=== PATIENT | female | born 1945 | race Caucasian/White ===

== ENCOUNTER → 2016-06-28 | Outpatient (CLI) | payer MEDICARE, OTHER ==
[~2016-06-28] MED LIST: ALLOPURINOL PO; ASPIR 8181 MG PO; COREG 12.5MG12.5 MG PO; CYMBALTA60 MG PO; DEXILANT60 MG PO; ELIQUIS2.5 MG PO; FISH OIL 1,0001 EAC1 PO; FOSAMAX70 MG PO; GARLIC1000 MG PO; HYDROCODON-ACE1 EAC4 PO; IMPRAMINE PO; ISOSORBIDE DINI30 MG PO; KLONOPIN TAB 00.5 MG PO; LASIX40 MG PO; LIPITOR TAB 2020 MG PO; LISINOPRIL10 MG PO; LORTAB 5-325 M1 EACH PO; NEURONTIN 300300 MG PO; NITROSTAT 0.40.4 MG SL; NORCO 5-325 TA1 EACH PO; PLAVIX 75 MG TA75 MG PO; SPIRONOLACTONE25 MG PO; TRICOR48 MG PO; TYLENOL ARTHRITIS PO; VOLTAREN 0.1%2.5 ML TOP; ZANAFLEX4 MG PO
== END ==
LOC: CT 08:00
DX: M51.17 Intervertebral disc disorders with radiculopathy, lumbosacral region (principal); M43.16 Spondylolisthesis, lumbar region
CPT/HCPCS: 72131

== ENCOUNTER 2016-07-23 21:03 | Emergency (ER) | payer MEDICARE, OTHER | END 2016-07-24 01:00 | disposition home or self-care (01) | LOC: ER1 21:03 | DX: S09.90XA Unspecified injury of head, initial encounter (principal); S51.812A Laceration without foreign body of left forearm, initial encounter; S80.212A Abrasion, left knee, initial encounter; I10 Essential (primary) hypertension; I48.91 Unspecified atrial fibrillation; Z79.02 Long term (current) use of antithrombotics/antiplatelets; Z88.0 Allergy status to penicillin; Z88.5 Allergy status to narcotic agent; Z23 Encounter for immunization; W01.198A Fall on same level from slipping, tripping and stumbling with subsequent striking against other object, initial encounter; Y93.01 Activity, walking, marching and hiking; Y92.480 Sidewalk as the place of occurrence of the external cause | CPT/HCPCS: 70450; 72125; 72170; 73080; 73090; 73564; 73610; 90471; 90715; 99284 ==

== ENCOUNTER → 2020-05-13 | Outpatient (CLI) | payer MEDICARE, OTHER ==
[~2020-05-13] MED LIST changes: +KEFLEX CAP 500500 MG PO
== END ==
LOC: KOH-I 11:44
DX: M25.511 Pain in right shoulder (principal)
CPT/HCPCS: 73030

== ENCOUNTER → 2020-06-10 | Outpatient (CLI) | payer MEDICARE, OTHER | LOC: KOH-I 11:22 | DX: M25.552 Pain in left hip (principal); M16.12 Unilateral primary osteoarthritis, left hip | CPT/HCPCS: 73502 ==

== ENCOUNTER → 2021-07-10 | Outpatient (CLI) | payer MEDICARE ==
[2021-07-13 10:17] LABS: CREATININE, URINE 118.2 mg/dL (Not Estab.)
== END ==
LOC: LAB 13:47
PROVIDERS: Internal Medicine Nephrology
DX: N18.32 Chronic kidney disease, stage 3b (principal)
CPT/HCPCS: 36415; 80048; 82043; 82570

== ENCOUNTER → 2021-09-23 | Outpatient (CLI) | payer MEDICARE, OTHER | LOC: KOH-I 12:35 | DX: M47.26 Other spondylosis with radiculopathy, lumbar region (principal) | CPT/HCPCS: 72100 ==

== ENCOUNTER → 2021-10-21 | Outpatient (CLI) | payer MEDICARE, OTHER | LOC: KOH-I 15:20 | DX: M25.511 Pain in right shoulder (principal) | CPT/HCPCS: 73030 ==

== ENCOUNTER 2021-11-02 20:45 | Emergency (ER) | payer MEDICARE, OTHER | END 2021-11-02 22:20 | disposition home or self-care (01) | LOC: ER1 20:45 | DX: S46.222A Laceration of muscle, fascia and tendon of other parts of biceps, left arm, initial encounter (principal); I25.2 Old myocardial infarction; I51.9 Heart disease, unspecified; Z23 Encounter for immunization; Z95.1 Presence of aortocoronary bypass graft; W01.0XXA Fall on same level from slipping, tripping and stumbling without subsequent striking against object, initial encounter | CPT/HCPCS: 90471; 90715; 99282 ==